=== PATIENT | female | born 1985 | race African-American/Black ===

== ENCOUNTER 2022-04-24 10:55 | Inpatient (IN) | payer MEDICAID, OTHER ==
[~2022-04-24] VITALS: Ht 162.6 cm; Wt 93.4 kg
[~2022-04-24 10:55] MED LIST: L25 PO
[2022-04-24] MEDS ORDERED: SODIUM CHLORIDE 0.9% 1,000 ML IV ONE ×2 (11:30→12:45)
[2022-04-24 11:58] LABS: BASOPHILS % 2.7 % (0.0-2.0); EOSINOPHILS % 1.3 % (0.0-5.0); HEMATOCRIT. 35.8 % (36.0-48.0); HEMOGLOBIN. 11.8 g/dL (12.0-16.0); LYMPHOCYTES % 65.6 % (20.0-50.0); MEAN CORPUSCULAR HEMOGLOBIN 24.4 pg (28.0-32.0); MEAN CORPUSCULAR VOLUME 73.6 fL (81.0-99.0); MEAN PLATELET VOLUME 7.6 fl (7.4-10.4); MONOCYTES % 8.6 % (2.0-8.0); NEUTROPHILS % 21.8 % (40.0-76.0); PLATELET 391 x1000/uL (130-400); RED BLOOD CELL COUNT 4.86 mill/uL (4.2-5.4)
[2022-04-24 12:07] LABS: CLARITY URINE CLEAR (CLEAR); COLOR URINE YELLOW (YELLOW); KETONES URINE NEGATIVE (NEGATIVE); LEUKOCYTE ESTERASE URINE NEGATIVE (NEGATIVE); NITRITE URINE NEGATIVE (NEGATIVE); OCCULT BLOOD URINE NEGATIVE (NEGATIVE); PH URINE >=9.0 (4.5-8.0); PROTEIN URINE 3+ (NEGATIVE); SPECIFIC GRAVITY URINE 1.021 (1.005-1.030); UROBILINOGEN URINE 0.2 E.U./dL (0.2-1.0)
[2022-04-24 12:09] LABS: CHLORIDE 98 mEq/L (98-107)
[2022-04-24 12:14] LABS: HCG SCREEN NEGATIVE
[2022-04-24 12:21] LABS: ETHANOL BLOOD 158 mg/dL
[2022-04-24 12:23] LABS: INR 1.1; PROTHROMBIN TIME 11.9 sec (9.6-11.0)
[2022-04-24 12:34] LABS: *AMPHETAMINES SCREEN URINE NEGATIVE (NEGATIVE); *BARBITURATES SCREEN URINE NEGATIVE (NEGATIVE); *COCAINE SCREEN URINE NEGATIVE (NEGATIVE); CANNABINOID URINE SCREEN NEGATIVE (NEGATIVE); METHADONE URINE SCREEN NEGATIVE (NEGATIVE); OPIATES URINE SCREEN NEGATIVE (NEGATIVE); PHENCYCLIDINE URINE SCREEN NEGATIVE (NEGATIVE)
[2022-04-24] MEDS ORDERED: ONDANSETRON HCL 4MG/2ML INJ IV ONE (12:45)
[2022-04-24] MEDS ORDERED: LORAZEPAM 2MG/ML CPJ IV ONE (12:45)
[2022-04-24 12:48] LABS: *BENZODIAZEPINES SCREEN URINE PRESUMTIVE POSITIVE (NEGATIVE)
[2022-04-24] MEDS ORDERED: CLONIDINE 0.1MG TABLET PO PRN (16:00)
[2022-04-24] MEDS ORDERED: ONDANSETRON HCL 4MG/2ML INJ IV PRN (16:00)
[2022-04-24] MEDS ORDERED: DIPHENHYDRAMINE 50MG/ML VIAL IV PRN (16:00)
[2022-04-24] MEDS ORDERED: IPRATROPIUM/ALBUTEROL 0.5-3(2.5)MG/3ML NEB HHN PRN (16:00)
[2022-04-24] MEDS ORDERED: ACETAMINOPHEN 325MG TABLET PO PRN (16:00)
[2022-04-24] MEDS ORDERED: MVI, ADULT NO.1 10 ML, FOLIC ACID 1 MG, THIAMINE HCL 100 MG in SODIUM CHLORIDE 0.9% 1,0... IV SCH ×4 (17:00)
[2022-04-24] MEDS: LORAZEPAM 0.5MG TABLET PO PRN (17:26)
[2022-04-24] MEDS: CHLORDIAZEPOXIDE 25MG CAPSULE PO SCH (22:14)
[2022-04-24 22:30] VITALS: BP 99/55
[2022-04-25 04:00] VITALS: BP 112/73
[2022-04-25 05:36] LABS: BASOPHILS % 1.7 % (0.0-2.0); EOSINOPHILS % 1.9 % (0.0-5.0); HEMATOCRIT. 32.2 % (36.0-48.0); HEMOGLOBIN. 10.4 g/dL (12.0-16.0); LYMPHOCYTES % 41.1 % (20.0-50.0); MEAN CORPUSCULAR HEMOGLOBIN 23.6 pg (28.0-32.0); MEAN CORPUSCULAR VOLUME 73.1 fL (81.0-99.0); MEAN PLATELET VOLUME 7.7 fl (7.4-10.4); MONOCYTES % 9.9 % (2.0-8.0); NEUTROPHILS % 45.4 % (40.0-76.0); PLATELET 297 x1000/uL (130-400); RED CELL DISTRIBUTION WIDTH 21.1 % (11.6-14.6)
[2022-04-25] MEDS: CHLORDIAZEPOXIDE 25MG CAPSULE PO SCH ×2 (05:42→14:58)
[2022-04-25 05:46] LABS: CHLORIDE 104 mEq/L (98-107)
[2022-04-25 08:00] VITALS: BP 118/72
[2022-04-25] MEDS ORDERED: POTASSIUM CHLORIDE 20MEQ TABLET SR PO NR (08:45)
[2022-04-25 12:00] VITALS: BP 125/87
[2022-04-25] MEDS: LORAZEPAM 0.5MG TABLET PO PRN (12:38)
[2022-04-25] MEDS ORDERED: THIA100T88 MT (12:40)
[2022-04-25] MEDS ORDERED: FOLI-43 MT (12:40)
[2022-04-25] MEDS ORDERED: L25 MT (12:40)
[2022-04-25] MEDS ORDERED: MULT-230 MT (12:40)
[2022-04-25] MEDS ORDERED: MULTIVITAMINS,THER W-MINERALS TABLET PO SCH (12:45)
[2022-04-25] MEDS ORDERED: LORAZEPAM 0.5MG TABLET PO PRN (12:45)
[2022-04-25] MEDS ORDERED: THIAMINE HCL 100MG TABLET PO SCH (12:45)
[2022-04-25] MEDS ORDERED: FOLIC ACID 1MG TABLET PO SCH (12:45)
[2022-04-25 14:27] LABS: TOTAL IRON BINDING CAPACITY 357 ug/dL (250-450)
[2022-04-25 14:41] VITALS: BP 123/87
== END 2022-04-25 16:48 | disposition home or self-care (01) | DRG 52 ==
LOC: ER 10:55 → 6WST 18:00 → EDBEDREQTM 18:02 → EDBEDREQ 18:02 → ENRESERV 21:48
PROVIDERS: ADMIT Internal Medicine; ATTEND Internal Medicine
DX: G92.8 Other toxic encephalopathy (principal); R56.9 Unspecified convulsions; D50.9 Iron deficiency anemia, unspecified; D72.821 Monocytosis (symptomatic); E87.6 Hypokalemia; R80.9 Proteinuria, unspecified; Z59.00 Homelessness unspecified; Z98.891 History of uterine scar from previous surgery; S09.90XD Unspecified injury of head, subsequent encounter; X58.XXXD Exposure to other specified factors, subsequent encounter; F10.139 Alcohol abuse with withdrawal, unspecified
CPT/HCPCS: 36415; 71045; 80053; 80305; 80320; 81003; 82728; 83540; 83550; 83735; 84703; 85025; 93005; 93970; 99285; C1893; J2060; J2405; J3411; J3490; J7030; G0480

== ENCOUNTER 2022-06-18 15:32 | Inpatient (IN) | payer MEDICAID, OTHER ==
[~2022-06-18] VITALS: Ht 162.6 cm; Wt 92.7 kg
[~2022-06-18 15:32] MED LIST changes: +FOLI-43 MT; +L25 MT; -L25 PO; +MULT-230 MT; +THIA100T88 MT
[2022-06-18] MEDS ORDERED: ONDANSETRON HCL 4MG/2ML INJ IV STA (16:07)
[2022-06-18] MEDS ORDERED: SODIUM CHLORIDE 0.9% 1,000 ML IV ONE (16:15)
[2022-06-18 17:03] LABS: BASOPHILS % 1.9 % (0.0-2.0); EOSINOPHILS % 1.7 % (0.0-5.0); HEMATOCRIT. 40.1 % (36.0-48.0); LYMPHOCYTES % 70.2 % (20.0-50.0); MEAN CORPUSCULAR HEMOGLOBIN 24.3 pg (28.0-32.0); MEAN CORPUSCULAR VOLUME 75.4 fL (81.0-99.0); MEAN PLATELET VOLUME 7.8 fl (7.4-10.4); MONOCYTES % 4.4 % (2.0-8.0); NEUTROPHILS % 21.8 % (40.0-76.0); PLATELET 266 x1000/uL (130-400); RED BLOOD CELL COUNT 5.32 mill/uL (4.2-5.4); RED CELL DISTRIBUTION WIDTH 20.5 % (11.6-14.6)
[2022-06-18 17:18] LABS: CHLORIDE 104 mEq/L (98-107)
[2022-06-18 17:23] LABS: CLARITY URINE CLEAR (CLEAR); COLOR URINE YELLOW (YELLOW); KETONES URINE NEGATIVE (NEGATIVE); LEUKOCYTE ESTERASE URINE NEGATIVE (NEGATIVE); NITRITE URINE NEGATIVE (NEGATIVE); OCCULT BLOOD URINE 1+ (NEGATIVE); PROTEIN URINE 2+ (NEGATIVE); SPECIFIC GRAVITY URINE 1.005 (1.005-1.030); UROBILINOGEN URINE 0.2 E.U./dL (0.2-1.0)
[2022-06-18 17:28] LABS: PHOSPHORUS 1.7 mg/dL (2.5-4.9)
[2022-06-18] MEDS ORDERED: LORAZEPAM 2MG/ML CPJ IV ONE ×2 (17:45→19:45)
[2022-06-18 19:53] LABS: HCG SCREEN NEGATIVE
[2022-06-19 02:25] VITALS: BP 125/78
[2022-06-19 04:00] VITALS: BP 117/75
[2022-06-19 08:00] VITALS: BP 123/78
[2022-06-19] MEDS ORDERED: CLONIDINE 0.1MG TABLET PO PRN (08:30)
[2022-06-19] MEDS ORDERED: ONDANSETRON HCL 4MG/2ML INJ IV PRN (08:30)
[2022-06-19] MEDS ORDERED: IPRATROPIUM/ALBUTEROL 0.5-3(2.5)MG/3ML NEB HHN PRN (08:30)
[2022-06-19] MEDS ORDERED: ACETAMINOPHEN 325MG TABLET PO PRN (08:30)
[2022-06-19] MEDS ORDERED: DIPHENHYDRAMINE 50MG/ML VIAL IV PRN (08:30)
[2022-06-19] MEDS ORDERED: MVI, ADULT NO.1 10 ML, FOLIC ACID 1 MG, THIAMINE HCL 100 MG in SODIUM CHLORIDE 0.9% 1,0... IV ONE ×4 (10:30)
[2022-06-19 12:00] VITALS: BP 117/73
[2022-06-19] MEDS: CHLORDIAZEPOXIDE 25MG CAPSULE PO SCH ×2 (14:42→20:54)
[2022-06-19 16:00] VITALS: BP 128/81
[2022-06-19 20:00] VITALS: BP 114/72
[2022-06-20] VITALS: BP 122/68
[2022-06-20 04:00] VITALS: BP 110/74
[2022-06-20] MEDS: CHLORDIAZEPOXIDE 25MG CAPSULE PO SCH (05:12)
[2022-06-20 08:00] VITALS: BP 121/82
[2022-06-20 08:11] LABS: EOSINOPHILS % 4.2 % (0.0-5.0); HEMATOCRIT. 36.8 % (36.0-48.0); HEMOGLOBIN. 11.8 g/dL (12.0-16.0); LYMPHOCYTES % 37.4 % (20.0-50.0); MEAN CORPUSCULAR HEMOGLOBIN 24.2 pg (28.0-32.0); MEAN CORPUSCULAR VOLUME 75.6 fL (81.0-99.0); MONOCYTES % 11.8 % (2.0-8.0); NEUTROPHILS % 45.6 % (40.0-76.0); PLATELET 224 x1000/uL (130-400); RED BLOOD CELL COUNT 4.87 mill/uL (4.2-5.4); RED CELL DISTRIBUTION WIDTH 20.3 % (11.6-14.6)
[2022-06-20 09:00] LABS: CHLORIDE 102 mEq/L (98-107)
[2022-06-20 12:00] VITALS: BP 130/93
[2022-06-20 15:37] VITALS: BP 116/57
== END 2022-06-20 15:53 | disposition home or self-care (01) | DRG 775 ==
LOC: ER 15:32 → MICUSO 21:25 → 7EST 06-19 02:54
PROVIDERS: ADMIT Internal Medicine; ATTEND Internal Medicine
DX: F10.129 Alcohol abuse with intoxication, unspecified (principal); F41.0 Panic disorder [episodic paroxysmal anxiety]; Z98.891 History of uterine scar from previous surgery; Z79.899 Other long term (current) drug therapy
CPT/HCPCS: 36415; 80053; 81003; 83735; 84100; 84484; 84703; 85025; 93970; 99291; J2060; J3411; J3490; J7030

== ENCOUNTER 2022-09-17 12:11 | Emergency (ER) | payer MEDICAID, OTHER ==
[~2022-09-17] VITALS: Ht 170.2 cm; Wt 89.0 kg
[2022-09-17 17:14] LABS: BASOPHILS % 1.3 % (0.0-2.0); EOSINOPHILS % 0.1 % (0.0-5.0); HEMATOCRIT. 44.1 % (36.0-48.0); HEMOGLOBIN. 14.5 g/dL (12.0-16.0); LYMPHOCYTES % 22.3 % (20.0-50.0); MEAN CORPUSCULAR HEMOGLOBIN 24.6 pg (28.0-32.0); MEAN CORPUSCULAR VOLUME 74.9 fL (81.0-99.0); MEAN PLATELET VOLUME 8.2 fl (7.4-10.4); MONOCYTES % 8.8 % (2.0-8.0); NEUTROPHILS % 67.5 % (40.0-76.0); PLATELET 365 x1000/uL (130-400); RED BLOOD CELL COUNT 5.89 mill/uL (4.2-5.4); RED CELL DISTRIBUTION WIDTH 19.4 % (11.6-14.6)
[2022-09-17] MEDS ORDERED: SODIUM CHLORIDE 0.9% 1,000 ML IV ONE (17:15)
[2022-09-17] MEDS ORDERED: LORAZEPAM 2MG/ML CPJ IV ONE (17:15)
[2022-09-17 17:22] LABS: INR 1.1
[2022-09-17 17:23] LABS: CHLORIDE 96 mEq/L (98-107)
[2022-09-17 17:39] LABS: CLARITY URINE CLOUDY (CLEAR); COLOR URINE DARK YELLOW (YELLOW); KETONES URINE TRACE (NEGATIVE); LEUKOCYTE ESTERASE URINE 1+ (NEGATIVE); NITRITE URINE POSITIVE (NEGATIVE); OCCULT BLOOD URINE 2+ (NEGATIVE); PH URINE 5.5 (4.5-8.0); PROTEIN URINE 4+ (NEGATIVE); SPECIFIC GRAVITY URINE 1.048 (1.005-1.030)
[2022-09-17] MEDS ORDERED: LORAZEPAM 1MG TABLET PO ONE (18:00)
[2022-09-17] MEDS ORDERED: ONDANSETRON 4MG ODT PO ONE (18:00)
[2022-09-17] MEDS ORDERED: CHLORDIAZEPOXIDE 25MG CAPSULE PO ONE (19:15)
[2022-09-17] MEDS ORDERED: CHLORDIAZEPOXIDE 25MG CAPSULE PO SCH (20:00)
[2022-09-17] MEDS ORDERED: L25 MT (20:16)
[2022-09-17] MEDS ORDERED: CEPH500C2 MT (20:27)
[2022-09-17 20:42] VITALS: BP 140/89
== END 2022-09-17 20:44 | disposition home or self-care (01) ==
LOC: ER 12:11
DX: F10.139 Alcohol abuse with withdrawal, unspecified (principal); F41.9 Anxiety disorder, unspecified; E86.0 Dehydration; G40.909 Epilepsy, unspecified, not intractable, without status epilepticus; Y90.9 Presence of alcohol in blood, level not specified; Z98.890 Other specified postprocedural states
CPT/HCPCS: 36415; 80053; 81003; 81025; 83735; 85025; 85610; 99284; J7030; Q0162

== ENCOUNTER 2024-05-31 08:46 | Emergency (ER) | payer MEDICAID ==
[~2024-05-31] VITALS: Ht 162.6 cm; Wt 76.0 kg
[~2024-05-31 08:46] MED LIST changes: +CEPH500C2 MT; +CHLO25CA11 MT; -L25 MT
[2024-05-31 09:05] VITALS: O2SAT 98
[2024-05-31] MEDS: ONDANSETRON HCL 4MG/2ML INJ IV ONE (10:25)
[2024-05-31] MEDS: SODIUM CHLORIDE 0.9% 1,000 ML IV ONE (10:25)
[2024-05-31] MEDS: LORAZEPAM 2MG/ML INJ IV ONE (10:25)
[2024-05-31 10:44] LABS: BASOPHILS % 1.2 % (0.0-2.0); DIFFERENTIAL COMMENT 0; HEMATOCRIT. 43.7 % (36.0-48.0); HEMOGLOBIN. 14.4 g/dL (12.0-16.0); LYMPHOCYTES % 17.3 % (20.0-50.0); MEAN CORPUSCULAR HEMOGLOBIN 28.6 pg (28.0-32.0); MEAN CORPUSCULAR HGB CONC 32.9 g/dL (31.0-37.0); MEAN CORPUSCULAR VOLUME 86.9 fL (81.0-99.0); MEAN PLATELET VOLUME 9.5 fl (7.4-10.4); MONOCYTES % 13.1 % (2.0-8.0); NEUTROPHILS % 68.4 % (40.0-76.0); PLATELET 248 x1000/uL (130-400); RED BLOOD CELL COUNT 5.02 mill/uL (4.2-5.4); RED CELL DISTRIBUTION WIDTH 13.5 % (11.6-14.6)
[2024-05-31 10:52] LABS: CHLORIDE 97 mEq/L (98-107); POTASSIUM 3.4 mEq/L (3.5-5.1); SODIUM 142 mEq/L (136-145)
[2024-05-31 10:53] LABS: CALCIUM 11.5 mg/dL (8.7-10.4); CARBON DIOXIDE 31 mEq/L (21-32)
[2024-05-31 10:57] LABS: CREATININE 1.1 mg/dL (0.6-1.0)
[2024-05-31 10:58] LABS: GLUCOSE 103 mg/dL (70-105); HCG SCREEN NEGATIVE; UREA NITROGEN BLOOD 12 mg/dL (9-23)
[2024-05-31 10:59] LABS: ALANINE AMINOTRANSFERASE 15 IU/L (10-49); ALBUMIN 4.9 g/dL (3.2-4.8); ASPARTATE AMINOTRANSFERASE 32 IU/L (<34)
[2024-05-31 11:00] LABS: BILIRUBIN TOTAL 1.7 mg/dL (0.1-1.0); PROTEIN TOTAL 8.8 g/dL (6.0-8.3)
[2024-05-31] MEDS ORDERED: ONDA-239 PO (11:21)
[2024-05-31 12:30] VITALS: BP 130/70; PULSE 80; RESP 16; TEMP 36.66960; O2SAT 98
== END 2024-05-31 12:30 | disposition home or self-care (01) ==
LOC: ER 08:46
DX: R11.2 Nausea with vomiting, unspecified (principal); F41.9 Anxiety disorder, unspecified
CPT/HCPCS: 80053; 84703; 83735; 85025; 36415; 93005; 96374; 96375; 99284; J2060; J2405; J7030; Z7610 ×5